=== PATIENT | male | born 1995 | race African-American/Black ===

== ENCOUNTER 2016-11-19 21:57 | Emergency (ER) | payer MEDICAID, OTHER ==
[~2016-11-19] VITALS: Ht 185.4 cm; Wt 68.0 kg
[~2016-11-19 21:57] MED LIST: DEXT15SY3 PO
--- NOTE | 2016-11-19 22:24 | NUR ---
Patient walked into ER c/o R ankle pain/swelling s/p fall while playing basketball. Patient presents with his own crutches. To room 5A. DEREK performed MSE.
[2016-11-19] MEDS ORDERED: OXYCODONE/APAP 5-325 MG TABLET PO ONE ×2 (22:30→23:45)
[2016-11-19] MEDS ORDERED: ONDANSETRON ODT 4 MG TAB.RAPDIS SL ONE (22:30)
[2016-11-19] MEDS ORDERED: ONDANSETRON ODT 4 MG TAB.RAPDIS ONE (22:31)
[2016-11-19] MEDS ORDERED: OXYCODONE/APAP 5-325 MG TABLET ONE ×2 (22:31→23:55)
--- NOTE | 2016-11-20 00:19 | NUR ---
Patient discharged to home in stable conditon. Written and verbal after care instructions given. Patient verbalizes understanding of instructions.
== END 2016-11-20 00:21 | disposition home or self-care (01) ==
LOC: ER 21:59
DX: S82.201A Unspecified fracture of shaft of right tibia, initial encounter for closed fracture (principal); X58.XXXA Exposure to other specified factors, initial encounter; Y93.67 Activity, basketball; Y99.8 Other external cause status; Y92.89 Other specified places as the place of occurrence of the external cause
CPT/HCPCS: 29505; 73610; 73630; 99284; A4663; Q0162